=== PATIENT | female | born 1960 | race Asian ===

== ENCOUNTER 2019-11-19 09:09 | Day surgery (SDC) | payer OTHER | END 2019-11-19 12:48 | disposition home or self-care (01) | LOC: OR 09:09 | PROC: 3E0R33Z Introduction of Anti-inflammatory into Spinal Canal, Percutaneous Approach (ICD-10-PCS; principal; 2019-11-19) | PROC: B01BYZZ Fluoroscopy of Spinal Cord using Other Contrast (ICD-10-PCS; 2019-11-19) | DX: M50.123 Cervical disc disorder at C6-C7 level with radiculopathy (principal) | CPT/HCPCS: J1020 ==

== ENCOUNTER 2020-02-11 08:17 | Day surgery (SDC) | payer OTHER ==
[~2020-02-11] VITALS: Ht 30.5 cm; Wt 0.5 kg
== END 2020-02-11 09:36 | disposition home or self-care (01) ==
LOC: OR 08:17
PROC: 3E0R33Z Introduction of Anti-inflammatory into Spinal Canal, Percutaneous Approach (ICD-10-PCS; principal; 2020-02-11)
PROC: B01BYZZ Fluoroscopy of Spinal Cord using Other Contrast (ICD-10-PCS; 2020-02-11)
DX: M50.121 Cervical disc disorder at C4-C5 level with radiculopathy (principal)
CPT/HCPCS: J1020

== ENCOUNTER 2020-04-27 10:40 | Outpatient (CLI) | payer OTHER | END 2020-04-27 21:08 | disposition home or self-care (01) | LOC: EMG 10:40 | PROVIDERS: ATTEND Pain Medicine Interventional Pain Medicine | DX: G56.03 Carpal tunnel syndrome, bilateral upper limbs (principal); G56.23 Lesion of ulnar nerve, bilateral upper limbs | CPT/HCPCS: 95860; 95912 ==